=== PATIENT | male | born 1985 ===

== ENCOUNTER 2019-07-24 10:05 | Emergency (ER) | payer OTHER ==
[2019-07-24] MEDS ORDERED: LIDOCAINE 1% MPF 5 ML VIAL ONE (11:08)
[2019-07-24] MEDS ORDERED: KETOROLAC 30 MG/ML INJ ONE (11:08)
[2019-07-24] MEDS ORDERED: TETANUS & DIPHTHERIA TOX,ADULT 0.5 ML VIAL ONE (11:10)
--- NOTE | 2019-07-24 11:32 | RAD REPORT ---
EXAM DESCRIPTION: RAD - Hand Right 3 View - 07/24/2019 10:46 am CLINICAL HISTORY: DEFORMITY Pain and swelling COMPARISON: No comparisons FINDINGS: [place]-neck deformity is seen affecting the fifth finger. No fracture is evident.
--- NOTE | 2019-07-24 12:35 | ER ---
Nurse's Notes [facility] Name: Rajiv Maddox Age: 34 yrs Sex: Male : 1985 Arrival Date: 07/24/2019 Time: 10:08 Bed 20 Private MD: Diagnosis: Dislocation of proximal interphalangeal joint of right little finger;Abrasion of right little finger Presentation: 07/23 10:15 Chief complaint: Patient states: "I was fishing and I fell on some rocks and hurt my aa5 finger". Deformity noted to right little finger. 10:15 Coronavirus screen: Proceed with normal triage. Patient denies a cough. Patient denies aa5 shortness of breath or difficulty breathing. Patient denies measured and/or subjective temperature greater than 100.4F prior to today's visit. Patient denies travel on a cruise ship or to a country the [facility] currently lists as an affected area. Patient denies contact with known and/or suspected case of COVID-19. Ebola Screen: Patient negative for fever greater than or equal to 101.5 degrees Fahrenheit, and additional compatible Ebola Virus Disease symptoms. Initial Sepsis Screen: Does the patient meet any 2 criteria? No. Patient's initial sepsis screen is negative. Does the patient have a suspected source of infection? No. Patient's initial sepsis screen is negative. Risk Assessment: Do you want to hurt yourself or someone else? Patient reports no desire to harm self or others. Onset of symptoms was July 24, 2019. 10:15 Acuity: EMILIE 4 aa5 10:15 Method Of Arrival: Ambulatory aa5 Triage Assessment: 10:23 Injury Description: Deformity sustained to palmar aspect of distal phalanx of right tw2 little finger, palmar aspect of middle phalanx of right little finger and palmar aspect of proximal phalanx of right little finger. Historical: - Allergies: 10:22 No Known Allergies; aa5 - PMHx: 10:22 None; aa5 - PSHx: 10:22 left arm; aa5 - Immunization history:: Last tetanus immunization: unknown. - Social history:: Smoking status: Patient denies any tobacco usage or history of. Screenin:34 Abuse screen: Denies threats or abuse. Nutritional screening: No deficits noted. aa5 Tuberculosis screening: No symptoms or risk factors identified. Fall Risk None identified. Assessment: 10:23 General: Appears comfortable, Behavior is calm, cooperative. Pain: Complains of pain in aa5 right little finger Pain currently is 6 out of 10 on a pain scale. Quality of pain is described as aching, throbbing, Is continuous. Neuro: Level of Consciousness is awake, alert, obeys commands, Oriented to person, place, time, situation. Cardiovascular: Capillary refill < 3 seconds is brisk in bilateral fingers. Respiratory: Airway is patent Respiratory effort is even, unlabored, Respiratory pattern is regular, symmetrical. GI: No signs and/or symptoms were reported involving the gastrointestinal system. : No signs and/or symptoms were reported regarding the genitourinary system. EENT: No signs and/or symptoms were reported regarding the EENT system. Derm: Skin is pink, warm \\T\\ dry. Musculoskeletal: Deformity noted to right little finger, Small wound noted to palmar aspect of right little finger, no active bleeding noted. 10:59 Reassessment: Patient appears in no apparent distress at this time. Patient and/or tw2 family updated on plan of care and expected duration. Pain level reassessed. Patient is alert, oriented x 3, equal unlabored respirations, skin warm/dry/pink. pt requesting pain medication at this time, drove himself to the ER Patient states symptoms have not improved. Vital Signs: 10:18 BP 124 / 82; Pulse 71; Resp 18 S; Temp 97.4(TE); Pulse Ox 98% on R/A; Weight 68.04 kg aa5 (R); Height 5 ft. 6 in. (167.64 cm) (R); Pain 6/10; 10:58 BP 112 / 71; Pulse 59; Resp 17; Temp 98.4; Pulse Ox 100% on R/A; Weight 58.97 kg (R); tw2 Pain 8/10; 12:52 BP 108 / 88; Pulse 61; Resp 17; Pulse Ox 99% on R/A; Pain 0/10; tw2 10:58 Body Mass Index 20.98 (58.97 kg, 167.64 cm) tw2 ED Course: 10:08 Patient arrived in ED. ag5 10:15 Arm band placed on. aa5 10:15 Patient has correct armband on for positive identification. Bed in low position. Call aa5 light in reach. Side rails up X 1. 10:21 Triage completed. aa5 10:23 Anahy Martinez RN is Primary Nurse. aa5 10:24 Alphonse Keita NP is PHCP. pm1 10:24 Byron Celis MD is Attending Physician. pm1 10:32 Wound care: was cleaned with soap and water, pt tolerated well. tw2 10:45 Hand Right 3 View XRAY In Process Unspecified. EDMS 10:55 Regina Clarke RN is Primary Nurse. tw2 12:27 Hand Right 3 View XRAY In Process Unspecified. EDMS 12:35 Paulo Arellano MD is Referral Physician. pm1 12:53 No provider procedures requiring assistance completed. Patient did not have IV access tw2 during this emergency room visit. Administered Medications: 11:10 Drug: Tetanus-Diphtheria Toxoid Adult 0.5 ml {Termite Control Service Representative: [employer]. Exp: tw2 04/28/2021. Lot #: [id number]. } Route: IM; Site: left deltoid; 11:37 Follow up: Response: No adverse reaction tw2 11:11 Drug: TORadol 60 mg Route: IM; Site: right deltoid; tw2 11:37 Follow up: Response: No adverse reaction; Pain is decreased tw2 11:24 Drug: Lidocaine (1 %) 5 ml {Note: by carolann israel.} Volume: 5 ml; Route: Infiltration;tw2 Outcome: 12:35 Discharge ordered by MD. pm1 12:53 Discharged to home ambulatory. tw2 12:53 Condition: stable 12:53 Discharge instructions given to patient, Instructed on discharge instructions, follow up and referral plans. medication usage, wound care, Demonstrated understanding of instructions, follow-up care, medications, Prescriptions given X 2. 12:54 Patient left the ED. tw2 Signatures: Dispatcher [employer] EDUT Anahy Martinez RN RN aa5 Alphonse Keita NP STAKE DRIVER pm1 Regina Clarke RN RN tw2 Za Matos ag5
--- NOTE | 2019-07-24 12:35 | EDPHYS ---
Physician Documentation [facility] Name: Rajiv Maddox Age: 34 yrs Sex: Male : 1985 Arrival Date: 07/24/2019 Time: 10:08 Bed 20 Private MD: [place] Physician Byron Celis HPI: 07/23 10:39 This 34 yrs old Male presents to ER via Ambulatory with complaints of Right 5th Finger pm1 Injury. 10:39 The patient or guardian reports deformity. The complaints affect the PIP of right pm1 little finger. Context: The problem was sustained outdoors, resulted from a fall, slipped. Onset: The symptoms/episode began/occurred just prior to arrival. Modifying factors: The symptoms are alleviated by nothing, the symptoms are aggravated by nothing. Associated signs and symptoms: Pertinent negatives: cyanosis distally, decreased sensation distally, numbness distally, tingling distally. The patient has not experienced similar symptoms in the past. Patient was fishing and he slipped on the rocks and landed on his right hand. Presenting with deformity to right PIP. Historical: - Allergies: 10:22 No Known Allergies; aa5 - PMHx: 10:22 None; aa5 - PSHx: 10:22 left arm; aa5 - Immunization history:: Last tetanus immunization: unknown. - Social history:: Smoking status: Patient denies any tobacco usage or history of. ROS: 10:39 Constitutional: Negative for fever, chills, and weight loss. pm1 10:39 Neck: Negative for injury, pain, and swelling, Cardiovascular: Negative for chest pain, palpitations, and edema, Respiratory: Negative for shortness of breath, cough, wheezing, and pleuritic chest pain, Abdomen/GI: Negative for abdominal pain, nausea, vomiting, diarrhea, and constipation, Back: Negative for injury and pain, Neuro: Negative for headache, weakness, numbness, tingling, and seizure. 10:39 MS/extremity: Positive for decreased range of motion, deformity, pain, of the right little finger, Negative for paresthesias, tingling. 10:39 Skin: Positive for abrasion(s), of the palmar aspect of proximal phalanx of right little finger. Exam: 10:39 Constitutional: This is a well developed, well nourished patient who is awake, alert, pm1 and in no acute distress. Head/Face: Normocephalic, atraumatic. 10:39 Back: No spinal tenderness. No costovertebral tenderness. Full range of motion. 10:39 Cardiovascular: Exam negative for acute changes, Rate: normal, Rhythm: regular, Pulses: no pulse deficits are appreciated. 10:39 Respiratory: Exam negative for acute changes, respiratory distress, shortness of breath. 10:39 Skin: Appearance: normal except for affected area, injury, abrasion(s), small abrasion noted, of the palmar aspect of proximal phalanx of right little finger. 10:39 Neuro: Exam negative for acute changes, Orientation: is normal, Mentation: is normal, Motor: is normal, moves all fours, Sensation: is normal, no obvious gross deficits. 11:26 Musculoskeletal/extremity: Post reduction patient able to move right fifth finger full pm1 range of motion. Vital Signs: 10:18 BP 124 / 82; Pulse 71; Resp 18 S; Temp 97.4(TE); Pulse Ox 98% on R/A; Weight 68.04 kg aa5 (R); Height 5 ft. 6 in. (167.64 cm) (R); Pain 6/10; 10:58 BP 112 / 71; Pulse 59; Resp 17; Temp 98.4; Pulse Ox 100% on R/A; Weight 58.97 kg (R); tw2 Pain 8/10; 12:52 BP 108 / 88; Pulse 61; Resp 17; Pulse Ox 99% on R/A; Pain 0/10; tw2 10:58 Body Mass Index 20.98 (58.97 kg, 167.64 cm) tw2 Procedures: 11:24 Reduction: of the PIP of right little finger, using traction, Immobilized with finger pm1 splint, Patient tolerated well. MDM: 10:25 Patient medically screened. pm1 11:03 Data reviewed: vital signs. Data interpreted: Pulse oximetry: on room air is 100 %. pm1 Interpretation: normal. 11:44 Counseling: I had a detailed discussion with the patient and/or guardian regarding: the pm1 historical points, exam findings, and any diagnostic results supporting the discharge/admit diagnosis, radiology results, the need for outpatient follow up, a hand specialist, to return to the emergency department if symptoms worsen or persist or if there are any questions or concerns that arise at home. 12:50 Counseling: I had a detailed discussion with the patient and/or guardian regarding: pm1 radiology results, post reduction radiologist results. 07/23 10:25 Order name: Hand Right 3 View XRAY; Complete Time: 11:34 pm1 07/23 11:26 Order name: Hand Right 3 View XRAY; Complete Time: 12:47 pm1 07/23 12:19 Order name: Finger Splint; Complete Time: 12:43 pm1 Administered Medications: 11:10 Drug: Tetanus-Diphtheria Toxoid Adult 0.5 ml {Senior [employer] Adf Developer: [employer]. Exp: tw2 04/28/2021. Lot #: [id number]. } Route: IM; Site: left deltoid; 11:37 Follow up: Response: No adverse reaction tw2 11:11 Drug: TORadol 60 mg Route: IM; Site: right deltoid; tw2 11:37 Follow up: Response: No adverse reaction; Pain is decreased tw2 11:24 Drug: Lidocaine (1 %) 5 ml {Note: by carolann israel.} Volume: 5 ml; Route: Infiltration;tw2 Disposition: 20:24 Co-signature as Attending Physician, Byron Celis MD I agree with the assessment and malika plan of care. Disposition: 07/24/19 12:35 Discharged to Home. Impression: Dislocation of proximal interphalangeal joint of right little finger, Abrasion of right little finger. - Condition is Stable. - Discharge Instructions: Abrasion, Cast or Splint Care, Adult, Finger or Thumb Dislocation. - Prescriptions for Diclofenac Sodium 75 mg Oral Tablet, Delayed Release (E.C.) - take 1 tablet by ORAL route 2 times per day As needed; 30 tablet. Doxycycline Hyclate 100 mg Oral Tablet - take 1 tablet by ORAL route every 12 hours; 20 tablet. - Medication Reconciliation Form, Thank You Letter, Antibiotic Education, Prescription Opioid Use form. - Follow up: Emergency Department; When: As needed; Reason: Worsening of condition. Follow up: Paulo Arellano; When: 5 - 6 days; Reason: Recheck today's complaints, Continuance of care, Re-evaluation by your physician. - Problem is new. - Symptoms have improved. Signatures: Dispatcher [employer] Byron Terrell MD MD cha Calderon, Audri, RN RN aa5 Alphonse Keita NP AIRWAY CONTROLLER pm1 Regina Clarke RN RN tw2 Corrections: (The following items were deleted from the chart) 12:54 12:35 07/24/2019 12:35 Discharged to Home. Impression: Dislocation of proximal tw2 interphalangeal joint of right little finger; Abrasion of right little finger. Condition is Stable. Forms are Medication Reconciliation Form, Thank You Letter, Antibiotic Education, Prescription Opioid Use. Follow up: Emergency Department; When: As needed; Reason: Worsening of condition. Follow up: Paulo Arellano; When: 5 - 6 days; Reason: Recheck today's complaints, Continuance of care, Re-evaluation by your physician. Problem is new. Symptoms have improved. pm1
--- NOTE | 2019-07-24 12:39 | RAD REPORT ---
EXAM DESCRIPTION: RAD - Hand Right 3 View - 07/24/2019 12:33 pm CLINICAL HISTORY: Post reduction Pain and swelling COMPARISON: Hand Right 3 View dated 07/24/2019 FINDINGS: Previously noted [place]-neck deformity of the fifth finger has been reduced. Slight bony irr egularity is seen along the palmar base of the middle phalanx of the fifth digit, which could be rela leighton to a mild ligamentous avulsion injury.
[2019-07-24 13:38] VITALS: TEMP 98.4
[2019-07-24 13:40] VITALS: BP 108/88; O2SAT 99
== END 2019-07-24 12:54 | disposition home or self-care (01) ==
LOC: ER 10:05
PROC: 0RSWXZZ Reposition Right Finger Phalangeal Joint, External Approach (ICD-10-PCS; principal; 2019-07-24)
DX: S63.286A Dislocation of proximal interphalangeal joint of right little finger, initial encounter (principal); S60.416A Abrasion of right little finger, initial encounter; W01.0XXA Fall on same level from slipping, tripping and stumbling without subsequent striking against object, initial encounter; Y93.89 Activity, other specified; Y92.89 Other specified places as the place of occurrence of the external cause; Z23 Encounter for immunization
CPT/HCPCS: 90471; 90714; 96372; 99284